=== PATIENT | male | born 1985 | race Caucasian/White ===

== ENCOUNTER 2021-12-02 04:46 | Emergency (ER) | payer SELFPAY ==
[2021-12-02 05:09] VITALS: TEMP 98.1; BMI 25.7
[2021-12-02 06:09] LABS: INR 0.93 (0.83-1.09); PROTHROMBIN TIME (PATIENT) 10.7 SEC (9.7-13.0)
[2021-12-02 06:10] LABS: BASO % 0.7 % (0-2.0); EOS % 0.3 % (0-4.5); HEMATOCRIT 41.6 % (35.4-49); HEMOGLOBIN 13.9 GM/dL (11.7-16.9); MCH 32.2 pg (25.7-33.7); MCHC 33.4 g/dl (32.0-35.9); MEAN CELL VOLUME 96.3 fl (80-96); MEAN PLT VOLUME 7.6 fl (7.5-11.1); MONO % 10.7 % (3.8-10.2); NEUT % 62.3 % (42.8-82.8); PLATELET COUNT 166 10^3/uL (134-434); RBC 4.32 M/mm3 (4.00-5.60); RDW 13.5 % (11.9-15.9); WHITE BLOOD COUNT 3.9 K/mm3 (4.0-10.0)
[2021-12-02 06:12] LABS: ACTIVATED PTT 38.4 SECONDS (25.2-36.5)
[2021-12-02 06:23] LABS: ALBUMIN 3.8 g/dl (3.4-5.0); CALCIUM 8.6 mg/dL (8.5-10.1)
[2021-12-02 06:27] LABS: CREATININE 0.6 mg/dL (0.55-1.3)
[2021-12-02 06:28] LABS: TOT PROT 8.2 g/dl (6.4-8.2)
[2021-12-02 06:29] LABS: BILIRUBIN,TOTAL 0.6 mg/dL (0.2-1)
[2021-12-02 07:26] VITALS: BP 122/74; PULSE 93
== END 2021-12-02 09:00 | disposition left against medical advice (07) ==
LOC: JER 04:46
DX: R20.2 Paresthesia of skin (principal)
CPT/HCPCS: 36415; 70450-TC; 80053; 80061; 80307; 82550; 82553; 83036; 84484; 85025; 85610; 85730; 86850; 86900; 86901; 93005; 93010; 99285-25

== ENCOUNTER 2023-07-10 12:43 | Inpatient (IN) | payer OTHER ==
[2023-07-10] MEDS ORDERED: diazePAM CARPU-JECT 10 MG/2 ML DISP.SYRIN IVPUSH ONE ×3 (13:45→15:40)
[2023-07-10] MEDS ORDERED: SODIUM CHLORIDE 0.9% 500 ML INFUS.BAG IV ONE (13:48)
[2023-07-10] MEDS ORDERED: CEPHALEXIN MONOHYDRATE 500 MG CAPSULE (UD) PO ONE (13:49)
[2023-07-10] MEDS ORDERED: diazePAM CARPU-JECT 10 MG/2 ML DISP.SYRIN ONE ×2 (14:06→16:00)
[2023-07-10] MEDS ORDERED: CEPHALEXIN MONOHYDRATE 500 MG CAPSULE (UD) ONE (14:07)
[2023-07-10 14:33] LABS: HEMATOCRIT 34.4 % (35.4-49); MCH 33.6 pg (25.7-33.7); MCHC 34.9 g/dl (32.0-35.9); MEAN CELL VOLUME 96.4 fl (80-96); MEAN PLT VOLUME 6.9 fl (7.5-11.1); PLATELET COUNT 146 10^3/uL (134-434); RBC 3.57 M/mm3 (4.00-5.60); RDW 14.1 % (11.9-15.9); WHITE BLOOD COUNT 5.2 K/mm3 (4.0-10.0)
[2023-07-10 15:01] LABS: CHLORIDE 100 mmol/L (98-107); POTASSIUM 4.4 mmol/L (3.5-5.1); SODIUM 134 mmol/L (136-145)
[2023-07-10 15:03] LABS: CALCIUM 8.4 mg/dL (8.5-10.1)
[2023-07-10 15:04] LABS: ALBUMIN 3.1 g/dl (3.4-5.0); ANION GAP 9 MMOL/L (8-16); BLOOD UREA NITROGEN 5.3 mg/dL (7-18); CO2 26 mmol/L (21-32); GLUCOSE,RANDOM 104 mg/dL (74-106)
[2023-07-10 15:07] LABS: SGPT/ALT 89 U/L (13-61)
[2023-07-10 15:08] LABS: BILIRUBIN,TOTAL 0.8 mg/dL (0.2-1)
[2023-07-10 15:09] LABS: TOT PROT 8.2 g/dl (6.4-8.2)
[2023-07-10 15:10] LABS: ALK PHOS 186 U/L (45-117)
[2023-07-10 15:50] LABS: CREATININE 0.6 mg/dL (0.55-1.3); SGOT/AST 143 U/L (15-37)
[2023-07-10] MEDS ORDERED: LACTATED RINGERS SOLUTION 1,000 ML/1,000 ML INFUS.BAG IV STA (16:00)
[2023-07-10] MEDS ORDERED: LACTATED RINGERS SOLUTION 1,000 ML/1,000 ML INFUS.BAG IV SCH (16:00)
[2023-07-10] MEDS ORDERED: ONDANSETRON 4 MG/2 ML VIAL IVPUSH PRN (16:01)
[2023-07-10] MEDS ORDERED: FOLIC ACID 1 MG TABLET (FP) ONE (16:14)
[2023-07-10] MEDS ORDERED: THIAMINE HCL 200 MG/2 ML VIAL ONE (16:14)
[2023-07-10 16:20] LABS: MAGNESIUM 1.9 mg/dL (1.8-2.4)
[2023-07-10 16:23] LABS: PHOSPHOROUS 3.3 mg/dL (2.5-4.9)
[2023-07-10] MEDS: FOLIC ACID 1 MG TABLET (FP) PO SCH (16:25)
[2023-07-10] MEDS: THIAMINE HCL 200 MG/2 ML VIAL IVPB SCH (16:25)
[2023-07-10] MEDS ORDERED: chlordiazePOXIDE HCL 25 MG CAPSULE ONE ×3 (17:32→22:02)
[2023-07-10] MEDS: chlordiazePOXIDE HCL 25 MG CAPSULE PO SCH ×2 (17:35→22:06)
[2023-07-10] MEDS: chlordiazePOXIDE HCL 25 MG CAPSULE PO PRN (20:31)
[2023-07-11] MEDS ORDERED: chlordiazePOXIDE HCL 25 MG CAPSULE ONE ×2 (04:16→08:16)
[2023-07-11] MEDS: chlordiazePOXIDE HCL 25 MG CAPSULE PO SCH ×4 (04:20→22:18)
[2023-07-11 06:40] LABS: BASO % 0.8 % (0-2.0); EOS % 0.3 % (0-4.5); HEMATOCRIT 34.1 % (35.4-49); HEMOGLOBIN 11.8 GM/dL (11.7-16.9); LYMPH % 9.3 % (8-40); MCH 33.6 pg (25.7-33.7); MCHC 34.4 g/dl (32.0-35.9); MEAN CELL VOLUME 97.5 fl (80-96); MEAN PLT VOLUME 7.2 fl (7.5-11.1); NEUT % 69.6 % (42.8-82.8); PLATELET COUNT 157 10^3/uL (134-434); RDW 13.6 % (11.9-15.9); WHITE BLOOD COUNT 6.1 K/mm3 (4.0-10.0)
[2023-07-11 06:58] LABS: POTASSIUM 3.4 mmol/L (3.5-5.1)
[2023-07-11 07:03] LABS: CALCIUM 8.3 mg/dL (8.5-10.1)
[2023-07-11 07:04] LABS: ALBUMIN 2.7 g/dl (3.4-5.0); BLOOD UREA NITROGEN 6.1 mg/dL (7-18); MAGNESIUM 1.8 mg/dL (1.8-2.4)
[2023-07-11 07:07] LABS: CREATININE 0.5 mg/dL (0.55-1.3); PHOSPHOROUS 3.1 mg/dL (2.5-4.9)
[2023-07-11 07:08] LABS: TOT PROT 7.4 g/dl (6.4-8.2)
[2023-07-11 07:09] LABS: BILIRUBIN,TOTAL 1.1 mg/dL (0.2-1)
[2023-07-11] MEDS ORDERED: POTASSIUM CHLORIDE ORAL LIQUID 20 MEQ/15 ML PO ONE (07:55)
[2023-07-11] MEDS ORDERED: THIAMINE HCL 200 MG/2 ML VIAL ONE (08:15)
[2023-07-11] MEDS ORDERED: FOLIC ACID 1 MG TABLET (FP) ONE (08:16)
[2023-07-11] MEDS ORDERED: ENOXAPARIN NA (PORCINE) 40 MG/0.4 ML DISP.SYRIN SQ ONE (08:16)
[2023-07-11] MEDS ORDERED: PANTOPRAZOLE SODIUM 40 MG VIAL ONE (08:17)
[2023-07-11] MEDS: FOLIC ACID 1 MG TABLET (FP) PO SCH (09:04)
[2023-07-11] MEDS: THIAMINE HCL 200 MG/2 ML VIAL IVPB SCH (09:04)
[2023-07-11] MEDS: ENOXAPARIN NA (PORCINE) 40 MG/0.4 ML DISP.SYRIN SQ SCH (09:04)
[2023-07-11] MEDS: PANTOPRAZOLE SODIUM 40 MG VIAL IVPUSH SCH (09:04)
[2023-07-11 09:34] VITALS: BMI 21.7
[2023-07-12] MEDS: chlordiazePOXIDE HCL 25 MG CAPSULE PO SCH ×4 (04:12→23:36)
[2023-07-12] MEDS: THIAMINE HCL 200 MG/2 ML VIAL IVPB SCH (09:20)
[2023-07-12] MEDS: PANTOPRAZOLE SODIUM 40 MG VIAL IVPUSH SCH (09:20)
[2023-07-12] MEDS: FOLIC ACID 1 MG TABLET (FP) PO SCH (09:20)
[2023-07-12] MEDS: ENOXAPARIN NA (PORCINE) 40 MG/0.4 ML DISP.SYRIN SQ SCH (09:20)
[2023-07-12 12:00] LABS: HEMATOCRIT 35.3 % (35.4-49); HEMOGLOBIN 12.4 GM/dL (11.7-16.9); MCH 33.7 pg (25.7-33.7); MCHC 35.1 g/dl (32.0-35.9); MEAN CELL VOLUME 96.1 fl (80-96); PLATELET COUNT 198 10^3/uL (134-434); RBC 3.68 M/mm3 (4.00-5.60); RDW 13.8 % (11.9-15.9); WHITE BLOOD COUNT 7.3 K/mm3 (4.0-10.0)
[2023-07-12 12:06] LABS: INR 1.16 (0.83-1.09); PROTHROMBIN TIME (PATIENT) 13.4 SEC (9.7-13.0)
[2023-07-12 12:25] LABS: POTASSIUM 3.6 mmol/L (3.5-5.1)
[2023-07-12 12:27] LABS: CALCIUM 8.4 mg/dL (8.5-10.1)
[2023-07-12 12:28] LABS: ALBUMIN 2.5 g/dl (3.4-5.0); BLOOD UREA NITROGEN 7.2 mg/dL (7-18); MAGNESIUM 1.9 mg/dL (1.8-2.4)
[2023-07-12 12:31] LABS: CREATININE 0.5 mg/dL (0.55-1.3); PHOSPHOROUS 3.4 mg/dL (2.5-4.9)
[2023-07-12 12:33] LABS: BILIRUBIN,TOTAL 0.9 mg/dL (0.2-1); TOT PROT 7.2 g/dl (6.4-8.2)
[2023-07-12] MEDS: chlordiazePOXIDE HCL 25 MG CAPSULE PO PRN (19:48)
[2023-07-12] MEDS: NYSTATIN 100,000 UNIT/GM TOPICAL CREAM 15 GM TUBE TP SCH (21:53)
[2023-07-12] MEDS ORDERED: ACETAMINOPHEN 325 MG TABLET (FP) PO ONE (23:26)
[2023-07-13] MEDS: chlordiazePOXIDE HCL 10 MG CAPSULE PO SCH ×3 (06:00→16:15)
[2023-07-13] MEDS: FOLIC ACID 1 MG TABLET (FP) PO SCH (09:19)
[2023-07-13] MEDS: THIAMINE HCL 200 MG/2 ML VIAL IVPB SCH (09:19)
[2023-07-13] MEDS: PANTOPRAZOLE SODIUM 40 MG VIAL IVPUSH SCH (09:19)
[2023-07-13] MEDS: ENOXAPARIN NA (PORCINE) 40 MG/0.4 ML DISP.SYRIN SQ SCH (09:19)
[2023-07-13] MEDS: NYSTATIN 100,000 UNIT/GM TOPICAL CREAM 15 GM TUBE TP SCH ×2 (10:32→22:45)
[2023-07-13 13:42] LABS: POTASSIUM 3.7 mmol/L (3.5-5.1)
[2023-07-13 13:44] LABS: ALBUMIN 2.6 g/dl (3.4-5.0); BLOOD UREA NITROGEN 6.9 mg/dL (7-18); CALCIUM 8.5 mg/dL (8.5-10.1); MAGNESIUM 2.3 mg/dL (1.8-2.4)
[2023-07-13 13:46] LABS: CREATININE 0.5 mg/dL (0.55-1.3); PHOSPHOROUS 3.2 mg/dL (2.5-4.9)
[2023-07-13 13:49] LABS: BILIRUBIN,TOTAL 0.8 mg/dL (0.2-1); TOT PROT 7.6 g/dl (6.4-8.2)
[2023-07-13] MEDS ORDERED: chlordiazePOXIDE HCL 10 MG CAPSULE PO PRN ×2 (19:20)
[2023-07-13] MEDS ORDERED: chlordiazePOXIDE HCL 10 MG CAPSULE PO SCH (23:00)
[2023-07-14] MEDS ORDERED: chlordiazePOXIDE HCL 10 MG CAPSULE PO SCH (05:00)
[2023-07-14] MEDS: chlordiazePOXIDE HCL 10 MG CAPSULE PO SCH ×2 (05:02→16:45)
[2023-07-14 10:55] LABS: BASO % 0.8 % (0-2.0); EOS % 0.8 % (0-4.5); HEMATOCRIT 34.2 % (35.4-49); HEMOGLOBIN 11.5 GM/dL (11.7-16.9); LYMPH % 8.3 % (8-40); MCHC 33.5 g/dl (32.0-35.9); MEAN CELL VOLUME 98.5 fl (80-96); MEAN PLT VOLUME 6.8 fl (7.5-11.1); MONO % 14.4 % (3.8-10.2); NEUT % 75.7 % (42.8-82.8); PLATELET COUNT 313 10^3/uL (134-434); RBC 3.48 M/mm3 (4.00-5.60); RDW 13.6 % (11.9-15.9); WHITE BLOOD COUNT 6.1 K/mm3 (4.0-10.0)
[2023-07-14] MEDS: THIAMINE HCL 100 MG TABLET (FP) PO SCH (11:09)
[2023-07-14] MEDS: FOLIC ACID 1 MG TABLET (FP) PO SCH (11:09)
[2023-07-14] MEDS: NYSTATIN 100,000 UNIT/GM TOPICAL CREAM 15 GM TUBE TP SCH ×2 (11:10→21:44)
[2023-07-14] MEDS: ENOXAPARIN NA (PORCINE) 40 MG/0.4 ML DISP.SYRIN SQ SCH (11:10)
[2023-07-14] MEDS: PANTOPRAZOLE SODIUM 40 MG VIAL IVPUSH SCH (11:10)
[2023-07-14 11:54] LABS: BLOOD UREA NITROGEN 9.6 mg/dL (7-18)
[2023-07-14 11:55] LABS: ALBUMIN 2.4 g/dl (3.4-5.0); CALCIUM 8.5 mg/dL (8.5-10.1)
[2023-07-14 11:58] LABS: CREATININE 0.6 mg/dL (0.55-1.3); POTASSIUM 3.9 mmol/L (3.5-5.1)
[2023-07-14 12:00] LABS: BILIRUBIN,TOTAL 0.7 mg/dL (0.2-1); TOT PROT 7.1 g/dl (6.4-8.2)
[2023-07-14] MEDS ORDERED: LORazepam 2 MG/ML SDV VIAL IM ONE (14:15)
[2023-07-14] MEDS: LORazepam 1 MG TABLET PO PRN (20:50)
[2023-07-15] MEDS ORDERED: chlordiazePOXIDE HCL 10 MG CAPSULE PO ONE ×2 (05:00)
[2023-07-15] MEDS: THIAMINE HCL 100 MG TABLET (FP) PO SCH (09:12)
[2023-07-15] MEDS: ENOXAPARIN NA (PORCINE) 40 MG/0.4 ML DISP.SYRIN SQ SCH (09:12)
[2023-07-15] MEDS: LORazepam 1 MG TABLET PO PRN (09:12)
[2023-07-15] MEDS: FOLIC ACID 1 MG TABLET (FP) PO SCH (09:12)
[2023-07-15] MEDS: PANTOPRAZOLE SODIUM 40 MG VIAL IVPUSH SCH (09:13)
[2023-07-15] MEDS: NYSTATIN 100,000 UNIT/GM TOPICAL CREAM 15 GM TUBE TP SCH ×2 (09:15→21:39)
[2023-07-15 09:28] LABS: BASO % 0.9 % (0-2.0); EOS % 0.8 % (0-4.5); HEMATOCRIT 32.4 % (35.4-49); HEMOGLOBIN 11.1 GM/dL (11.7-16.9); LYMPH % 10.1 % (8-40); MCH 33.5 pg (25.7-33.7); MCHC 34.4 g/dl (32.0-35.9); MEAN CELL VOLUME 97.4 fl (80-96); MONO % 13.7 % (3.8-10.2); NEUT % 74.5 % (42.8-82.8); PLATELET COUNT 333 10^3/uL (134-434); RBC 3.32 M/mm3 (4.00-5.60); RDW 13.4 % (11.9-15.9); WHITE BLOOD COUNT 6.5 K/mm3 (4.0-10.0)
[2023-07-15 09:44] LABS: POTASSIUM 4.1 mmol/L (3.5-5.1)
[2023-07-15 10:01] LABS: CALCIUM 8.2 mg/dL (8.5-10.1)
[2023-07-15 10:02] LABS: ALBUMIN 2.3 g/dl (3.4-5.0); MAGNESIUM 2.3 mg/dL (1.8-2.4)
[2023-07-15 10:04] LABS: CREATININE 0.5 mg/dL (0.55-1.3)
[2023-07-15 10:07] LABS: BILIRUBIN,TOTAL 0.7 mg/dL (0.2-1)
[2023-07-15] MEDS: LACTULOSE 20 GM/30 ML UDC (FOR ORAL USE ONLY) PO SCH ×2 (15:45→21:39)
[2023-07-15] MEDS ORDERED: LORazepam 1 MG TABLET PO PRN (15:54)
[2023-07-16] MEDS: LACTULOSE 20 GM/30 ML UDC (FOR ORAL USE ONLY) PO SCH ×4 (06:39→21:32)
[2023-07-16 08:15] LABS: BASO % 0.9 % (0-2.0); EOS % 1.8 % (0-4.5); HEMATOCRIT 33.1 % (35.4-49); HEMOGLOBIN 11.2 GM/dL (11.7-16.9); LYMPH % 10.9 % (8-40); MCH 33.2 pg (25.7-33.7); MCHC 33.8 g/dl (32.0-35.9); MEAN PLT VOLUME 6.9 fl (7.5-11.1); MONO % 14.2 % (3.8-10.2); NEUT % 72.2 % (42.8-82.8); PLATELET COUNT 376 10^3/uL (134-434); RBC 3.38 M/mm3 (4.00-5.60); RDW 13.2 % (11.9-15.9); WHITE BLOOD COUNT 6.1 K/mm3 (4.0-10.0)
[2023-07-16 08:28] LABS: POTASSIUM 4.1 mmol/L (3.5-5.1)
[2023-07-16 08:43] LABS: CALCIUM 8.3 mg/dL (8.5-10.1)
[2023-07-16 08:45] LABS: ALBUMIN 2.4 g/dl (3.4-5.0); BLOOD UREA NITROGEN 10.7 mg/dL (7-18); MAGNESIUM 2.3 mg/dL (1.8-2.4)
[2023-07-16 08:46] LABS: CREATININE 0.5 mg/dL (0.55-1.3)
[2023-07-16 08:48] LABS: BILIRUBIN,TOTAL 0.6 mg/dL (0.2-1); TOT PROT 7.2 g/dl (6.4-8.2)
[2023-07-16] MEDS: ENOXAPARIN NA (PORCINE) 40 MG/0.4 ML DISP.SYRIN SQ SCH (09:15)
[2023-07-16] MEDS: FOLIC ACID 1 MG TABLET (FP) PO SCH (09:15)
[2023-07-16] MEDS: THIAMINE HCL 100 MG TABLET (FP) PO SCH (09:15)
[2023-07-16] MEDS: PANTOPRAZOLE SODIUM 40 MG VIAL IVPUSH SCH (09:15)
[2023-07-16] MEDS: NYSTATIN 100,000 UNIT/GM TOPICAL CREAM 15 GM TUBE TP SCH ×2 (09:15→21:32)
[2023-07-16] MEDS: METHYL SALICYLATE/MENTHOL OINT 30 GM TUBE TP SCH ×2 (21:31→21:33)
[2023-07-17] MEDS: LACTULOSE 20 GM/30 ML UDC (FOR ORAL USE ONLY) PO SCH ×3 (05:38→21:15)
[2023-07-17] MEDS: METHYL SALICYLATE/MENTHOL OINT 30 GM TUBE TP SCH ×4 (09:18→21:15)
[2023-07-17] MEDS: PANTOPRAZOLE SODIUM 40 MG VIAL IVPUSH SCH (09:42)
[2023-07-17] MEDS: FOLIC ACID 1 MG TABLET (FP) PO SCH (09:42)
[2023-07-17] MEDS: ENOXAPARIN NA (PORCINE) 40 MG/0.4 ML DISP.SYRIN SQ SCH (09:42)
[2023-07-17] MEDS: THIAMINE HCL 100 MG TABLET (FP) PO SCH (09:42)
[2023-07-17] MEDS: NYSTATIN 100,000 UNIT/GM TOPICAL CREAM 15 GM TUBE TP SCH ×2 (09:43→21:15)
[2023-07-17 10:19] LABS: BASO % 1.8 % (0-2.0); EOS % 2.2 % (0-4.5); HEMATOCRIT 33.6 % (35.4-49); HEMOGLOBIN 11.5 GM/dL (11.7-16.9); LYMPH % 12.8 % (8-40); MCH 33.7 pg (25.7-33.7); MCHC 34.4 g/dl (32.0-35.9); MEAN CELL VOLUME 98.2 fl (80-96); MEAN PLT VOLUME 6.9 fl (7.5-11.1); MONO % 14.9 % (3.8-10.2); NEUT % 68.3 % (42.8-82.8); PLATELET COUNT 447 10^3/uL (134-434); RBC 3.42 M/mm3 (4.00-5.60); RDW 13.1 % (11.9-15.9); WHITE BLOOD COUNT 5.4 K/mm3 (4.0-10.0)
[2023-07-17 10:40] LABS: ALBUMIN 2.4 g/dl (3.4-5.0); POTASSIUM 4.4 mmol/L (3.5-5.1)
[2023-07-17 10:42] LABS: BILIRUBIN,DIRECT 0.3 mg/dL (0.0-0.2)
[2023-07-17 10:44] LABS: TOT PROT 7.7 g/dl (6.4-8.2)
[2023-07-17 10:45] LABS: BILIRUBIN,TOTAL 0.6 mg/dL (0.2-1); CALCIUM 8.7 mg/dL (8.5-10.1)
[2023-07-17 10:47] LABS: ALBUMIN 2.4 g/dl (3.4-5.0); BLOOD UREA NITROGEN 10.3 mg/dL (7-18); MAGNESIUM 2.3 mg/dL (1.8-2.4)
[2023-07-17 10:49] LABS: CREATININE 0.7 mg/dL (0.55-1.3)
[2023-07-17 10:50] LABS: TOT PROT 7.7 g/dl (6.4-8.2)
[2023-07-17 10:51] LABS: BILIRUBIN,TOTAL 0.6 mg/dL (0.2-1)
[2023-07-18] MEDS: LACTULOSE 20 GM/30 ML UDC (FOR ORAL USE ONLY) PO SCH ×3 (05:52→21:27)
[2023-07-18 09:41] LABS: BASO % 2.2 % (0-2.0); EOS % 2.8 % (0-4.5); HEMATOCRIT 37.4 % (35.4-49); HEMOGLOBIN 13.3 GM/dL (11.7-16.9); LYMPH % 17.5 % (8-40); MCH 34.1 pg (25.7-33.7); MCHC 35.5 g/dl (32.0-35.9); MEAN PLT VOLUME 6.9 fl (7.5-11.1); MONO % 11.3 % (3.8-10.2); NEUT % 66.2 % (42.8-82.8); PLATELET COUNT 606 10^3/uL (134-434); RDW 13.1 % (11.9-15.9); WHITE BLOOD COUNT 6.1 K/mm3 (4.0-10.0)
[2023-07-18 09:58] LABS: POTASSIUM 4.4 mmol/L (3.5-5.1)
[2023-07-18 10:00] LABS: ALBUMIN 2.8 g/dl (3.4-5.0); BLOOD UREA NITROGEN 12.2 mg/dL (7-18); CALCIUM 9.2 mg/dL (8.5-10.1); MAGNESIUM 2.2 mg/dL (1.8-2.4)
[2023-07-18] MEDS: PANTOPRAZOLE SODIUM 40 MG VIAL IVPUSH SCH (10:02)
[2023-07-18] MEDS: FOLIC ACID 1 MG TABLET (FP) PO SCH (10:02)
[2023-07-18 10:03] LABS: ALBUMIN 2.7 g/dl (3.4-5.0); CREATININE 0.7 mg/dL (0.55-1.3)
[2023-07-18] MEDS: METHYL SALICYLATE/MENTHOL OINT 30 GM TUBE TP SCH ×2 (10:03→21:27)
[2023-07-18] MEDS: ENOXAPARIN NA (PORCINE) 40 MG/0.4 ML DISP.SYRIN SQ SCH (10:03)
[2023-07-18] MEDS: THIAMINE HCL 100 MG TABLET (FP) PO SCH (10:03)
[2023-07-18] MEDS: NYSTATIN 100,000 UNIT/GM TOPICAL CREAM 15 GM TUBE TP SCH ×2 (10:04→21:27)
[2023-07-18 10:05] LABS: BILIRUBIN,TOTAL 0.6 mg/dL (0.2-1); TOT PROT 8.6 g/dl (6.4-8.2)
[2023-07-18 10:06] LABS: BILIRUBIN,DIRECT 0.3 mg/dL (0.0-0.2)
[2023-07-18 10:08] LABS: BILIRUBIN,TOTAL 0.7 mg/dL (0.2-1); TOT PROT 8.6 g/dl (6.4-8.2)
[2023-07-19] MEDS: LACTULOSE 20 GM/30 ML UDC (FOR ORAL USE ONLY) PO SCH ×3 (05:30→21:38)
[2023-07-19 10:14] LABS: BASO % 2.1 % (0-2.0); EOS % 4.7 % (0-4.5); HEMATOCRIT 36.7 % (35.4-49); HEMOGLOBIN 12.2 GM/dL (11.7-16.9); LYMPH % 18.5 % (8-40); MCH 32.6 pg (25.7-33.7); MCHC 33.1 g/dl (32.0-35.9); MEAN CELL VOLUME 98.5 fl (80-96); MONO % 12.9 % (3.8-10.2); NEUT % 61.8 % (42.8-82.8); PLATELET COUNT 515 10^3/uL (134-434); RBC 3.73 M/mm3 (4.00-5.60); RDW 13.1 % (11.9-15.9); WHITE BLOOD COUNT 4.6 K/mm3 (4.0-10.0)
[2023-07-19 10:18] LABS: INR 1.15 (0.83-1.09); PROTHROMBIN TIME (PATIENT) 13.3 SEC (9.7-13.0)
[2023-07-19 11:16] LABS: POTASSIUM 4.1 mmol/L (3.5-5.1)
[2023-07-19] MEDS: FOLIC ACID 1 MG TABLET (FP) PO SCH (11:16)
[2023-07-19] MEDS: ENOXAPARIN NA (PORCINE) 40 MG/0.4 ML DISP.SYRIN SQ SCH (11:16)
[2023-07-19] MEDS: METHYL SALICYLATE/MENTHOL OINT 30 GM TUBE TP SCH ×3 (11:16→21:44)
[2023-07-19] MEDS: THIAMINE HCL 100 MG TABLET (FP) PO SCH (11:16)
[2023-07-19] MEDS: NYSTATIN 100,000 UNIT/GM TOPICAL CREAM 15 GM TUBE TP SCH ×2 (11:17→21:39)
[2023-07-19 11:21] LABS: ALBUMIN 2.4 g/dl (3.4-5.0)
[2023-07-19 11:23] LABS: BLOOD UREA NITROGEN 11.2 mg/dL (7-18); MAGNESIUM 2.2 mg/dL (1.8-2.4)
[2023-07-19 11:24] LABS: CREATININE 0.6 mg/dL (0.55-1.3)
[2023-07-19 11:25] LABS: BILIRUBIN,TOTAL 0.7 mg/dL (0.2-1)
[2023-07-19 11:26] LABS: TOT PROT 7.6 g/dl (6.4-8.2)
[2023-07-20] MEDS ORDERED: IRON SUCROSE INJECTION 200 MG in SODIUM CHLORIDE 90 ML IVPB ONE (09:00)
[2023-07-20] MEDS: ENOXAPARIN NA (PORCINE) 40 MG/0.4 ML DISP.SYRIN SQ SCH (09:45)
[2023-07-20] MEDS: METHYL SALICYLATE/MENTHOL OINT 30 GM TUBE TP SCH (09:46)
[2023-07-20] MEDS: THIAMINE HCL 100 MG TABLET (FP) PO SCH (09:46)
[2023-07-20] MEDS: FOLIC ACID 1 MG TABLET (FP) PO SCH (09:46)
[2023-07-20] MEDS: LACTULOSE 20 GM/30 ML UDC (FOR ORAL USE ONLY) PO SCH (09:46)
[2023-07-20] MEDS: NYSTATIN 100,000 UNIT/GM TOPICAL CREAM 15 GM TUBE TP SCH (09:47)
[2023-07-20 09:53] LABS: BASO % 2.2 % (0-2.0); EOS % 4.1 % (0-4.5); HEMATOCRIT 37.1 % (35.4-49); HEMOGLOBIN 12.5 GM/dL (11.7-16.9); LYMPH % 16.5 % (8-40); MCH 32.9 pg (25.7-33.7); MCHC 33.6 g/dl (32.0-35.9); MEAN CELL VOLUME 98.1 fl (80-96); MEAN PLT VOLUME 7.1 fl (7.5-11.1); MONO % 11.9 % (3.8-10.2); NEUT % 65.3 % (42.8-82.8); PLATELET COUNT 540 10^3/uL (134-434); RBC 3.79 M/mm3 (4.00-5.60); RDW 13.1 % (11.9-15.9); WHITE BLOOD COUNT 5.4 K/mm3 (4.0-10.0)
[2023-07-20 10:06] LABS: INR 1.18 (0.83-1.09); PROTHROMBIN TIME (PATIENT) 13.7 SEC (9.7-13.0)
[2023-07-20 10:12] LABS: POTASSIUM 4.3 mmol/L (3.5-5.1)
[2023-07-20 10:24] LABS: ALBUMIN 2.5 g/dl (3.4-5.0); BLOOD UREA NITROGEN 7.4 mg/dL (7-18); CALCIUM 8.9 mg/dL (8.5-10.1)
[2023-07-20 10:27] LABS: CREATININE 0.5 mg/dL (0.55-1.3)
[2023-07-20 10:29] LABS: TOT PROT 7.6 g/dl (6.4-8.2)
[2023-07-20 10:30] LABS: BILIRUBIN,TOTAL 0.6 mg/dL (0.2-1)
[2023-07-20 15:06] VITALS: BP 110/63; PULSE 81; RESP 16; TEMP 98.4
== END 2023-07-20 15:19 | disposition home or self-care (01) | DRG 775 ==
LOC: JER 12:43 → JERBED 15:46 → J2W 07-11 09:29 → J8W 07-13 17:26
PROVIDERS: ADMIT Internal Medicine; ATTEND Nurse Practitioner Acute Care
DX: F10.230 Alcohol dependence with withdrawal, uncomplicated (principal); K70.10 Alcoholic hepatitis without ascites; E86.0 Dehydration; R79.89 Other specified abnormal findings of blood chemistry; B35.3 Tinea pedis; K76.82 Hepatic encephalopathy; K76.0 Fatty (change of) liver, not elsewhere classified; R21 Rash and other nonspecific skin eruption; E87.1 Hypo-osmolality and hyponatremia; G62.9 Polyneuropathy, unspecified; D64.9 Anemia, unspecified
CPT/HCPCS: 36415; 74178-TC; 76705-TC; 80053; 80076; 80307; 82105; 82140; 82525; 82550; 82570; 82607; 82728; 82746; 82977; 83516; 83540; 83550; 83735; 84100; 85025; 85027; 85610; 86038; 86704; 86803; 87040; 87340; 87517; 97116-GP; 97161-GP; 99285-25; J1756; Q9967

== ENCOUNTER 2024-03-03 18:37 | Emergency (ER) | payer SELFPAY ==
[2024-03-03 18:44] VITALS: TEMP 98.1; BMI 24.0
[2024-03-03] MEDS ORDERED: DALBAVANCIN HCL 500 MG VIAL (RESTRICTED TO ID ONLY) IVPB ONE (19:47)
[2024-03-03 19:54] LABS: BASO % 0.3 % (0-2.0); EOS % 0.3 % (0-4.5); HEMATOCRIT 36.6 % (35.4-49); HEMOGLOBIN 12.6 GM/dL (11.7-16.9); MCHC 34.4 g/dl (32.0-35.9); MEAN CELL VOLUME 95.9 fl (80-96); MEAN PLT VOLUME 6.9 fl (7.5-11.1); MONO % 11.9 % (3.8-10.2); NEUT % 73.5 % (42.8-82.8); PLATELET COUNT 163 10^3/uL (134-434); RBC 3.82 M/mm3 (4.00-5.60); RDW 13.6 % (11.9-15.9); WHITE BLOOD COUNT 7.1 K/mm3 (4.0-10.0)
[2024-03-03] MEDS: DALBAVANCIN HCL 1,500 MG in DEXTROSE 5%-WATER - 500 ML IVPB ONE (20:00)
[2024-03-03 20:09] VITALS: BP 108/67; PULSE 67; RESP 19
[2024-03-03 20:34] LABS: POTASSIUM 3.7 mmol/L (3.5-5.1)
[2024-03-03 20:36] LABS: ALBUMIN 3.6 g/dl (3.4-5.0); CALCIUM 8.1 mg/dL (8.5-10.1)
[2024-03-03 20:37] LABS: BLOOD UREA NITROGEN 7.2 mg/dL (7-18)
[2024-03-03 20:39] LABS: CREATININE 0.5 mg/dL (0.55-1.3)
[2024-03-03 20:41] LABS: BILIRUBIN,TOTAL 0.4 mg/dL (0.2-1)
== END 2024-03-03 20:52 | disposition home or self-care (01) ==
LOC: JER 18:37
DX: L03.113 Cellulitis of right upper limb (principal)
CPT/HCPCS: 36415; 73090-TC-RT-FY; 80053; 85025; 99284-25; J0875

== ENCOUNTER 2024-03-05 07:58 | Inpatient (IN) | payer SELFPAY ==
[2024-03-05 08:16] VITALS: RESP 18; BMI 25.7
[2024-03-05 10:29] LABS: BASO % 0.6 % (0-2.0); EOS % 1.7 % (0-4.5); HEMATOCRIT 38.6 % (35.4-49); HEMOGLOBIN 13.3 GM/dL (11.7-16.9); LYMPH % 13.9 % (8-40); MCH 33.3 pg (25.7-33.7); MCHC 34.6 g/dl (32.0-35.9); MEAN CELL VOLUME 96.4 fl (80-96); MEAN PLT VOLUME 7.1 fl (7.5-11.1); NEUT % 72.8 % (42.8-82.8); PLATELET COUNT 179 10^3/uL (134-434); RDW 13.6 % (11.9-15.9); WHITE BLOOD COUNT 6.4 K/mm3 (4.0-10.0)
[2024-03-05 11:22] LABS: POTASSIUM 3.9 mmol/L (3.5-5.1)
[2024-03-05 11:25] LABS: ALBUMIN 3.4 g/dl (3.4-5.0)
[2024-03-05 11:26] LABS: BLOOD UREA NITROGEN 9.1 mg/dL (7-18)
[2024-03-05 11:29] LABS: CREATININE 0.6 mg/dL (0.55-1.3)
[2024-03-05 11:30] LABS: BILIRUBIN,TOTAL 0.8 mg/dL (0.2-1); TOT PROT 7.9 g/dl (6.4-8.2)
[2024-03-05] MEDS: VANCOMYCIN 1,000 MG in DEXTROSE 5%-WATER - 250 ML IVPB ONE (11:38)
[2024-03-05] MEDS ORDERED: VANCOMYCIN 1 GRAM (PRE-DOCKED) 1,000 MG/250 ML BAG IVPB ONE (11:38)
[2024-03-05] MEDS ORDERED: VANCOMYCIN/WATER FOR INJ (PEG) 1,000 MG/200 ML BAG IVPB SCH (23:00)
[2024-03-05] MEDS ORDERED: VANCOMYCIN 1,000 MG in DEXTROSE 5%-WATER - 250 ML IVPB SCH (23:00)
[2024-03-06] MEDS: ENOXAPARIN NA (PORCINE) 40 MG/0.4 ML DISP.SYRIN SQ SCH (10:15)
[2024-03-06] MEDS: FOLIC ACID 1 MG TABLET (FP) PO SCH (10:15)
[2024-03-06] MEDS: THIAMINE 100 MG TABLET PO SCH (10:15)
[2024-03-06 11:14] LABS: BASO % 0.5 % (0-2.0); EOS % 1.7 % (0-4.5); HEMATOCRIT 40.7 % (35.4-49); LYMPH % 13.8 % (8-40); MCH 33.4 pg (25.7-33.7); MCHC 34.5 g/dl (32.0-35.9); MEAN PLT VOLUME 7.3 fl (7.5-11.1); MONO % 11.4 % (3.8-10.2); NEUT % 72.6 % (42.8-82.8); PLATELET COUNT 185 10^3/uL (134-434); RDW 13.4 % (11.9-15.9); WHITE BLOOD COUNT 5.4 K/mm3 (4.0-10.0)
[2024-03-06 11:44] LABS: POTASSIUM 3.9 mmol/L (3.5-5.1)
[2024-03-06 11:50] LABS: ALBUMIN 3.1 g/dl (3.4-5.0); BLOOD UREA NITROGEN 11.6 mg/dL (7-18); CALCIUM 8.7 mg/dL (8.5-10.1); MAGNESIUM 2.4 mg/dL (1.8-2.4)
[2024-03-06 11:54] LABS: CREATININE 0.6 mg/dL (0.55-1.3); PHOSPHOROUS 3.4 mg/dL (2.5-4.9)
[2024-03-06 11:55] LABS: BILIRUBIN,TOTAL 0.6 mg/dL (0.2-1); TOT PROT 7.7 g/dl (6.4-8.2)
[2024-03-06] MEDS ORDERED: ACETAMINOPHEN 325 MG TABLET (FP) PO PRN (20:09)
[2024-03-07 09:03] LABS: BASO % 0.7 % (0-2.0); EOS % 2.5 % (0-4.5); HEMATOCRIT 41.4 % (35.4-49); HEMOGLOBIN 14.1 GM/dL (11.7-16.9); LYMPH % 17.8 % (8-40); MCH 33.2 pg (25.7-33.7); MCHC 34.1 g/dl (32.0-35.9); MEAN CELL VOLUME 97.3 fl (80-96); MEAN PLT VOLUME 7.4 fl (7.5-11.1); MONO % 14.4 % (3.8-10.2); NEUT % 64.6 % (42.8-82.8); PLATELET COUNT 220 10^3/uL (134-434); RBC 4.25 M/mm3 (4.00-5.60); RDW 13.2 % (11.9-15.9); WHITE BLOOD COUNT 5.7 K/mm3 (4.0-10.0)
[2024-03-07 09:20] LABS: POTASSIUM 3.9 mmol/L (3.5-5.1)
[2024-03-07 09:24] LABS: ALBUMIN 3.4 g/dl (3.4-5.0); BLOOD UREA NITROGEN 12.4 mg/dL (7-18); CALCIUM 9.1 mg/dL (8.5-10.1)
[2024-03-07 09:27] LABS: CREATININE 0.6 mg/dL (0.55-1.3)
[2024-03-07 09:29] LABS: BILIRUBIN,TOTAL 0.5 mg/dL (0.2-1); TOT PROT 7.8 g/dl (6.4-8.2)
[2024-03-08 02:24] VITALS: BP 123/77; PULSE 78; TEMP 98.3
== END 2024-03-08 02:00 | disposition short-term general hospital (02) | DRG 383 ==
LOC: JER 07:58 → JERBED 14:58 → J5S 19:26
PROVIDERS: ADMIT Internal Medicine; ATTEND Nurse Practitioner Family
DX: L02.413 Cutaneous abscess of right upper limb (principal); L03.113 Cellulitis of right upper limb; F10.10 Alcohol abuse, uncomplicated
CPT/HCPCS: 36415; 73110-TC-RT-FY; 73201-TC-RT; 80053; 83735; 84100; 85025; 85651; 86140; 87040; 87635; 93005; 93010; 99285-25; Q9967